=== PATIENT | male | born 1990 | race Caucasian/White ===

== ENCOUNTER 2023-12-31 08:12 | Outpatient (CLI) | payer OTHER, SELFPAY ==
--- NOTE | ~2023-12-31 | XR_ITS ---
EXAMINATION: XR chest 2V 12/31/2023 08:26 INDICATION: Pleurodynia PROCEDURE: 2 view chest COMPARISON: No prior studies for comparison. FINDINGS: The lungs are clear. The cardiomediastinal silhouette is within normal limits. There are no pleural effusions. There is no pneumothorax suspected. IMPRESSION: 1: NO ACUTE CARDIOPULMONARY DISEASE. Reviewed, dictated and finalized at location B.
== END 2023-12-31 08:13 ==
PROVIDERS: PCP Family Medicine; Visit Provider Student in an Organized Health Care Education/Training Program
DX: R07.81 Pleurodynia (principal)
CPT/HCPCS: 71046

== ENCOUNTER 2024-02-04 04:44 | Day surgery (SDC) | payer OTHER, SELFPAY ==
[2024-01-18 13:52] VITALS: BMI 41.8
--- NOTE | 2024-02-04 09:15 | WPDANESEPPF ---
Anes - Initial Pre Proc Eval Procedure: Operation Date: 02/04/24 12:30 Proposed Procedures p Colonoscopy - Gustavo Monsivais MD Date/Time: 02/04/24 09:15 Surgeon: Gustavo Monsivais MD Pre Op Diagnosis: Gastroenteritis/colitis unspecified Patient Data Age: 33 Gender: M Height: 1.83 m Weight: 140 kg Allergies Allergy/AdvReac Type Severity Reaction Status Date / Time No Known Drug Allergies Allergy Unknown Unknown Verified 02/04/24 11:08 Home Medications Medication Instructions Recorded Confirmed Type multivitamin with iron (Daily 1 tablet PO DAILY 03/03/23 02/04/24 History Multiple Vitamins with Iron tablet) omeprazole 20 mg capsule,delayed 20 mg PO DAILY 03/03/23 02/04/24 History release lisinopril 20 mg tablet 20 mg PO DAILY #30 tabs 11/22/23 02/04/24 Rx metformin 500 mg tablet,extended 500 mg PO DAILY #90 tabs 01/31/24 02/04/24 Rx release 24 hr Patient hx anesthesia problems: none Family hx anesthesia problems: none Results Review: All pre-operative results and documents have been reviewed as part of the pre-operative evaluation. [facility], [facility] Past Medical History Medical History Anxiety Surgical History Surgical History H/O wisdom tooth extraction 2007 Family History Family History Father Hypertension Mother Depression Thyroid disorder Sibling Asthma Depression Grandparent Heart disease Thyroid disorder Cerebrovascular accident Grandparent Heart disease Hypertension Diabetes mellitus Social History Social History Social History: Smoking status: Smoker, status unknown Tobacco type: smokeless tobacco Smokeless tobacco user: other Second hand tobacco smoke exposure: No Additional smoking assessment comments: Pt uses nicotine pouches Alcohol intake: current Drinks per week: 1 Alcohol use details: Rarely Substance use: former Substance use type: marijuana Other substance usage details: edible 1x month Do You Feel Safe in your Home?: Yes Lack of Transportation: No Lack of Food: Never True Current Housing: I Have Housing Concerned About Future Housing: No Difficulty Paying Gas/Electric Bills: No Difficulty Paying for Meds: No Currently Unemployed: No Education: Don't Know Difficulty w/ Childcare or Family Care: No Living arrangements: with family Additional living arrangements comments: lives w/ fiance Occupation/Education: occupation 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[employer] Gender identity (if verbalized by the patient): Male Sexual Orientation (if Verbalized by the Patient): Straight or Heterosexual Spiritual care concerns: No Anes - Eval Final PreProcedure Day of Procedure 02/04/24 09:15 Patient weight: morbidly obese Heart: regular rate and rhythm Lungs: clear to auscultation Airway: Mallampati scale class III Neurological: alert and oriented Last oral intake: >/= 8 hours ASA classification: III Emergent: no Anesthetic plan: proceed Anesthesia type and monitoring: general GIVS and standard monitoring Results Review: All pre-operative results and documents have been reviewed as part of the pre-operative evaluation. Informed Consent: The patient's anesthetic plan and its attendant risks and benefits were discussed with the patient/family/POA. Questions were solicited and answers provided to the satisfaction of the patient/family/POA.
[2024-02-04 11:08] LABS: Glucose Point of Care 135 mg/dl (65-105)
[2024-02-04 11:10] VITALS: BP 134/85; PULSE 107; RESP 16; TEMP 36.1; O2SAT 99
[2024-02-04] MEDS: LACTATED RINGERS 1,000 ML 150 ML IV CONT (11:16)
--- NOTE | 2024-02-04 12:51 | PM.HPGS ---
History of Present Illness History of Present Illness Consent: Risks, benefits, and alternatives have been discussed and questions answered. Patient agrees to proceed with procedure. Chief complaint: Gastroenteritis/colitis unspecified Narrative: Virgil Julio is a 33 year old male here for first colonoscopy, intermittent loose stools, few occasions used imodium. Review of Systems Review of Systems: All systems reviewed & are unremarkable except as noted in HPI and below PMFSH Past Medical History Medical History (Updated 02/04/24 @ 12:52 by Gustavo Monsivais MD) Anxiety Diarrhea Surgical History Surgical History H/O wisdom tooth extraction 2007 Family History Family History Father Hypertension Mother Depression Thyroid disorder Sibling Asthma Depression Grandparent Heart disease Thyroid disorder Cerebrovascular accident Grandparent Heart disease Hypertension Diabetes mellitus Social History Social History Social History: Smoking status: Smoker, status unknown Tobacco type: smokeless tobacco Smokeless tobacco user: other Second hand tobacco smoke exposure: No Additional smoking assessment comments: Pt uses nicotine pouches Alcohol intake: current Drinks per week: 1 Alcohol use details: Rarely Substance use: former Substance use type: marijuana Other substance usage details: edible 1x month Do You Feel Safe in your Home?: Yes Lack of Transportation: No Lack of Food: Never True Current Housing: I Have Housing Concerned About Future Housing: No Difficulty Paying Gas/Electric Bills: No Difficulty Paying for Meds: No Currently Unemployed: No Education: Don't Know Difficulty w/ Childcare or Family Care: No Living arrangements: with family Additional living arrangements comments: lives w/ fiance Occupation/Education: occupation 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[employer] Gender identity (if verbalized by the patient): Male Sexual Orientation (if Verbalized by the Patient): Straight or Heterosexual Spiritual care concerns: No Meds Home Medications and Allergies Home Medications Medication Instructions Recorded Confirmed Type multivitamin with iron (Daily 1 tablet PO DAILY 03/03/23 02/04/24 History Multiple Vitamins with Iron tablet) omeprazole 20 mg capsule,delayed 20 mg PO DAILY 03/03/23 02/04/24 History release lisinopril 20 mg tablet 20 mg PO DAILY #30 tabs 11/22/23 02/04/24 Rx metformin 500 mg tablet,extended 500 mg PO DAILY #90 tabs 01/31/24 02/04/24 Rx release 24 hr Allergies Allergy/AdvReac Type Severity Reaction Status Date / Time No Known Drug Allergies Allergy Unknown Unknown Verified 02/04/24 11:08 Vital Signs Vital Signs - 24 hr 02/04/24 11:10 Temperature 97 F L Pulse Rate 107 H Respiratory Rate 16 Blood Pressure 134/85 Pulse Oximetry 99 Oxygen Delivery Room Air Exam Const: General: comfortable and no acute distress HENMT: Face/Nose/Sinus: Normal nares present Eyes: General: appearance normal, both eyes and all related structures Neck: Neck: no JVD Resp: Auscultation: clear to auscultation bilaterally Cardio: Rate: regular rate Rhythm: regular rhythm GI: Inspection: non-distended GI Palp: Yes Soft to palpation Skin: General skin exam: normal color Neuro: General: gait normal Speech: normal speech Extrem: General: normal to inspection Psych: Mental Status: mental status grossly normal Assessment and Plan Assessment and plan (1) Diarrhea: Code(s): R19.7 - Diarrhea, unspecified Status: Acute Assessment and Plan: colonoscopy with random colon bx
[2024-02-04 13:05] VITALS: BP 129/68; PULSE 88; RESP 19; O2SAT 96
[2024-02-04 13:15] VITALS: BP 127/84; PULSE 96; RESP 25; O2SAT 98
[2024-02-04 13:25] VITALS: BP 124/79; PULSE 76; RESP 25; O2SAT 97
== END 2024-02-04 13:31 | disposition home or self-care (01) ==
PROVIDERS: PCP Family Medicine; Referring Provider Family Medicine; Visit Provider Internal Medicine Gastroenterology
PROC: 0DJD8ZZ Inspection of Lower Intestinal Tract, Via Natural or Artificial Opening Endoscopic (ICD-10-PCS; CPT 45378; principal; 2024-02-04 12:30)
DX: R19.7 Diarrhea, unspecified (principal); F17.290 Nicotine dependence, other tobacco product, uncomplicated; Z79.84 Long term (current) use of oral hypoglycemic drugs; E66.01 Morbid (severe) obesity due to excess calories; Z68.41 Body mass index [BMI] 40.0-44.9, adult
CPT/HCPCS: 45380; 82948; 88305; J2704; J7120

== ENCOUNTER 2024-04-01 15:55 | Emergency (ER) | payer OTHER, SELFPAY ==
--- NOTE | ~2024-04-01 | CT_ITS ---
EXAMINATION: CT soft tissue neck w con DATE: 04/01/2024 19:02 INDICATION: Enlargement shortness of breath, swallowing trouble x3 days, swollen tonsils TECHNIQUE: Computed tomography (CT) of the neck was performed with 75 mL Omnipaque-350 intravenous co ntrast. Automated exposure control and iterative reconstruction technique were employed. The dose-slick gth product was 717.58 mGy-cm. COMPARISON: None FINDINGS: The thyroid gland is unremarkable. The submandibular and parotid glands are symmetric. Bilateral anterior cervical chain. Mild left palatine tonsil enlargement. Marked right palatine tonsil enlargem ent with significant surrounding mucosal and soft tissue swelling/phlegmon, extending to the hypophar ynx, which appears to be limited to the right pharyngeal mucosal space. Mild edema in the right phary ngeal space. No definite focal rim enhancing fluid collection detected. The superior mediastinum is unremarkable. There is moderate narrowing of the hypopharyngeal airway. Normally enhancing neck ves sels. The orbits are unremarkable. Visualized sinuses and mastoid air cells are well aerated. Visu alized lung parenchyma is clear. No suspicious osseous finding. IMPRESSION: Marked right palatine tonsillar and mucosal space soft tissue swelling/phlegmon, causing moderate air way narrowing. No definite drainable abscess detected. Mild left palatine tonsillar swelling. Bilateral anterior cervical chain lymphadenopathy. Reviewed, dictated and finalized at location K. [facility] IMPRESSION: Marked right palatine tonsillar and mucosal space soft tissue swelling/phlegmon , causing moderate airway narrowing. No definite drainable abscess detected. Mild left palatine tonsillar swelling. Bilateral anterior cervical chain lymphadenopathy.
[2024-04-01 16:15] VITALS: BP 155/89; PULSE 98; RESP 14; TEMP 37.2; O2SAT 99
[2024-04-01 18:30] VITALS: BP 142/90; PULSE 112; RESP 16; O2SAT 98
[2024-04-01 18:38] LABS: Basophils Absolute Auto 0.1 K/mm3 (0.0-0.1); Basophils Percent Auto 0.4 % (0.2-1.2); Eosinophils Absolute Auto 0.1 K/mm3 (0-0.3); Eosinophils Percent Auto 0.4 % (0-4.4); Hematocrit 44.2 % (42.0-52.0); Hemoglobin 15.1 g/dL (14.0-18.0); Immature Granulocyte Absolute 0.12 K/mm3 (0.00-0.031); Immature Granulocyte Percent A 0.6 % (0-0.5); Lymphocytes Percent Auto 12.4 % (18.3-44.2); Mean Corpuscular HGB Conc 34.2 g/dl (32-36); Mean Corpuscular Hemoglobin 29.3 pg (26-34); Mean Corpuscular Volume 85.8 fl (80-100); Mean Platelet Volume 9.8 fl (7.4-10.4); Monocytes Absolute Auto 1.8 K/mm3 (0.1-0.6); Monocytes Percent Auto 9.1 % (2.6-8.5); Neutrophils Absolute Auto 14.9 K/mm3 (1.3-6.7); Neutrophils Percent Auto 77.1 % (45.5-73.1); Platelet Count Result 225 k/mm3 (150-375); Red Blood Count 5.15 M/mm3 (4.6-6.20); Red Cell Distribution Width 12.4 % (11.5-14.5); White Blood Count 19.3 K/mm3 (4.5-10.0)
[2024-04-01 18:48] LABS: Alanine Aminotransferase 30 U/L (6-50); Albumin Level 5.1 g/dL (3.5-5.1); Alkaline Phosphatase 74 U/L (38-126); Anion Gap 9 mmol/L (4-12); Aspartate Amino Transferase 28 U/L (17-59); Bilirubin,Total 2.3 mg/dL (0.2-1.3); Blood Urea Nitrogen 15 mg/dL (9-20); Calcium 9.9 mg/dL (8.4-10.2); Carbon Dioxide 28 mmol/L (22-30); Chloride 100 mmol/L (98-107); Estimated CRCL calculation 165 ml/min; Estimated Glomerular Filt Rate > 60; Glucose 121 mg/dL (65-110); Sodium 137 mmol/L (137-145)
[2024-04-01 19:03] LABS: Estimated CRCL calculation 148 ml/min; Estimated Glomerular Filt Rate > 60
--- NOTE | 2024-04-01 19:18 | ED_ITS ---
HPI - Recheck/Abnormal Lab/Rx General Chief Complaint: Recheck/Abnormal Lab/Rx <Laura Conti PA-C - Last Filed: 04/02/24 00:05> Stated Complaint: SWOLLEN TONSILS <Laura Conti PA-C - Last Filed: 04/02/24 00:05> Time Seen by Provider: 04/01/24 18:47 <Laura Conti PA-C - Last Filed: 04/02/24 00:05> History of Present Illness HPI narrative: 33-year-old male with history of hypertension, GERD and prediabetes on metformin presents to emergency department for sore throat for 3 days. Patient urgent care yesterday was prescribed amoxicillin. He has taken 3 doses and states his symptoms have significantly worsened which prompted him to come to [facility] ED today. He is reporting difficulty swallowing, drooling and feels like it is starting to affect his breathing. He is reporting changes in his voice. Denies nausea or vomiting. Endorses low-grade fevers. <Laura Conti PA-C - Last Filed: 04/02/24 00:05> Related Data Home Medications: Home Medications Medication Instructions Recorded Confirmed multivitamin with iron (Daily 1 tablet PO DAILY 03/03/23 02/04/24 Multiple Vitamins with Iron tablet) omeprazole 20 mg capsule,delayed 20 mg PO DAILY 03/03/23 02/04/24 release <Laura Conti PA-C - Last Filed: 04/02/24 00:05> Allergies/Adverse Reactions: Allergies Allergy/AdvReac Type Severity Reaction Status Date / Time No Known Drug Allergies Allergy Unknown Unknown Verified 02/04/24 11:08 <Laura Conti PA-C - Last Filed: 04/02/24 00:05> [facility]LY [facility] Past Medical History Medical History: Medical History Anxiety Diarrhea <Laura Conti PA-C - Last Filed: 04/02/24 00:05> Surgical History Surgical History: Surgical History H/O wisdom tooth extraction 2007 <Laura Conti PA-C - Last Filed: 04/02/24 00:05> Family History Family History: Family History Father Hypertension Mother Depression Thyroid disorder Sibling Asthma Depression Grandparent Heart disease Thyroid disorder Cerebrovascular accident Grandparent Heart disease Hypertension Diabetes mellitus <Laura Conti PA-C - Last Filed: 04/02/24 00:05> Social History Social History: Social History Social History: Smoking status: Smoker, status unknown Tobacco type: smokeless tobacco Smokeless tobacco user: other Second hand tobacco smoke exposure: No Additional smoking assessment comments: Pt uses nicotine pouches Alcohol intake: current Drinks per week: 1 Alcohol use details: Rarely Substance use: former Substance use type: marijuana Other substance usage details: edible 1x month Do You Feel Safe in your Home?: Yes Lack of Transportation: No Lack of Food: Never True Current Housing: I Have Housing Concerned About Future Housing: No Difficulty Paying Gas/Electric Bills: No Difficulty Paying for Meds: No Currently Unemployed: No Education: Don't Know Difficulty w/ Childcare or Family Care: No Living arrangements: with family Additional living arrangements comments: lives w/ fiance Occupation/Education: occupation 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 HEAD: Normocephalic, atraumatic. EYES: PERRLA and EOMI. ENT: Nares clear, no rhinorrhea or epistaxis. Mucous membranes moist. Posterior pharynx with right tonsillar hypertrophy and uvular deviation. No obvious exudates. Airway intact. No drooling on exam. No trismus. He does have hot potato voice with submandibular edema NECK: Supple. CHEST: Clear to auscultation. No respiratory distress. HEART: Regular rate and rhythm. No murmur heard. Normal peripheral pulses. EXTREMITIES: Normal range of motion. No edema. SKIN: Warm, dry, no rash. NEURO: No focal deficits. Alert and oriented x3 <Laura Conti PA-C - Last Filed: 04/02/24 00:05> Course ER REGISTRAR/PA Physician Supervision I agree with midlevel documentation; I performed significant medical decision-making components for this evaluation including initiation of antibiotics including Unasyn, recommendations were Decadron for airway swelling, evaluation of the CT with independent interpretation by myself and also in concurrence with radiology. I had independent [id number] time with the patient and performed my own independent evaluation and assessment. Patient has significant right-sided swelling in his posterior oropharynx although the CT scan shows this goes deeper into his hypopharynx and around his airway with moderate narrowing. Patient initially had a hot potato muffled voice and difficulty swallowing with some drooling and spitting up but was able to swallow. Mentating appropriately normal vital signs. We had shelley discussions about potential need for intubation if he were to decompensate here in the emergency department prior to definitive intervention with your nose and throat specialist. I re-evaluated the patient frequently in after his Decadron injection had significant improvement in his swelling and was now swallowing more comfortably, felt improvement in his voice and pain in his throat. I reviewed patient's laboratory studies and he has a significant leukocytosis as well as the soft tissue edema and swelling in his right-sided posterior oropharynx and hypopharynx consistent with a infectious process. Unasyn maintain at this time and transfer center was made aware of the critical nature of the transfer. Patient does not require emergent or prophylactic intubation at this time and we will monitor closely here in the ED. We had discussions with the receiving facility at [facility] and plans for an ED to ED transfer. Due to the weather, air ambulance transfer is not possible after we called them they are declining transfer via air evac. Ground transportation will have to do and patient was successfully transferred via [facility] ground ambulance unit. Patient maintained his own airway here in the emergency dep artment and had no decompensations during my re-evaluations and during transfer to EMS rig. Family members were present during the evaluations and agreeable to plan of care for transfer at this time. Patient had improvements while here in the ED and left successfully without further intervention or decompensation. <Thomas Hough MD - Last Filed: 04/01/24 23:12> Vital Signs Vital signs: Vital Signs Temperature 99.0 F 04/01/24 16:15 Pulse Rate 98 04/01/24 16:15 Respiratory Rate 14 04/01/24 16:15 Blood Pressure 155/89 H 04/01/24 16:15 Pulse Oximetry 99 04/01/24 16:15 Temperature 99.0 F 04/01/24 16:15 Pulse Rate 91 04/01/24 22:30 Respiratory Rate 18 04/01/24 22:30 Blood Pressure 102/66 04/01/24 22:30 Pulse Oximetry 97 04/01/24 22:30 <Laura Conti PA-C - Last Filed: 04/02/24 00:05> Vital Signs Temperature 99.0 F 04/01/24 16:15 Pulse Rate 98 04/01/24 16:15 Respiratory Rate 14 04/01/24 16:15 Blood Pressure 155/89 H 04/01/24 16:15 Pulse Oximetry 99 04/01/24 16:15 Temperature 99.0 F 04/01/24 16:15 Pulse Rate 91 04/01/24 22:30 Respiratory Rate 18 04/01/24 22:30 Blood Pressure 102/66 04/01/24 22:30 Pulse Oximetry 97 04/01/24 22:30 <Thomas Hough MD - Last Filed: 04/01/24 23:12> MDM - Recheck/Abnormal Lab/Rx MDM Narrative Medical decision making narrative: 33-year-old male with history of hypertension and prediabetes presents to the ED for sore throat for 3 days, worsening after taking amoxicillin. Triage vitals are stable, repeat vital signs reveal tachycardia 112. He is afebrile in the ED. Exam is significant for right-sided tonsillar hypertrophy with uvular deviation. Airway intact at this time. He is speaking in full sentences. No trismus. There is right submandibular edema that hot potato voice present. Concern for [place] verses deep space infection. CBC does reveal leukocytosis of 19.3. Patient meets sepsis criteria with tachycardia leukocytosis. 30 mL/kg of fluids ordered. He was immediately given IV Decadron and started on Unasyn.. Blood cultures pending. His chemistries reveal unknown cause of hyperbilirubinemia a 2.3, remainder LFTs are unremarkable. [place], COVID, flu, RSV and strep were negative. Lactic normal. CT soft tissue neck shows: Marked right palatine tonsillar and mucosal space soft tissue swelling/phlegmon, causing moderate airway narrowing. No definite drainable abscess detected. Mild left palatine tonsillar swelling. Bilateral anterior cervical chain lymphadenopathy. patient and family at bedside updated on workup. Unfortunately we do not have ENT. Plan to transfer to [facility] per patient's recommendations. He does have significant improvement after IV Decadron with improvement in his voice, breathing and swallowing. Airway has remained stable. Tachycardia is resolved. Discussed case with [facility] ENT physician, Dr. Kong who agrees to transfer, advises ED to ED transfer. Discussed with [facility] ED physician, Dr. Flores, who accepts transfer. Patient left our emergency department in stable condition with airway intact. <Laura Conti PA-C - Last Filed: 04/02/24 00:05> Lab Data Result diagrams: 04/01/24 18:32 04/01/24 18:55 <Laura Conti PA-C - Last Filed: 04/02/24 00:05> Labs: Lab Results 04/01/24 04/01/24 04/01/24 Range/Units 18:32 18:55 19:06 WBC 19.3 H (4.5-10.0) K/mm3 RBC 5.15 (4.6-6.20) M/mm3 Hgb 15.1 (14.0-18.0) g/dL Hct 44.2 (42.0-52.0) % MCV 85.8 (80-100) fl MCH 29.3 (26-34) pg MCHC 34.2 (32-36) g/dl RDW 12.4 (11.5-14.5) % Plt Count 225 (150-375) k/mm3 MPV 9.8 (7.4-10.4) fl Immature Gran % (Auto) 0.6 H (0-0.5) % Neut % (Auto) 77.1 H (45.5-73.1) % Lymph % (Auto) 12.4 L (18.3-44.2) % [place] % (Auto) 9.1 H (2.6-8.5) % Eos % (Auto) 0.4 (0-4.4) % Baso % (Auto) 0.4 (0.2-1.2) % Lymph # (Auto) 2.40 (0.9-3.2) K/mm3 [place] # (Auto) 1.8 H (0.1-0.6) K/mm3 Eos # (Auto) 0.1 (0-0.3) K/mm3 Baso # (Auto) 0.1 (0.0-0.1) K/mm3 Abs Immat Gran (auto) 0.12 H (0.00-0.031) K/mm3 Absolute Neuts (auto) 14.9 H (1.3-6.7) K/mm3 Absolute Nucleated RBC 0.000 (0.0-0.012) K/mm3 Nucleated RBC % 0.0 (0.0-0.2) % ESR 20 (0-20) mm/hr Sodium 137 (137-145) mmol/L Potassium 4.0 (3.4-5.0) mmol/L Chloride 100 (98-107) mmol/L Carbon Dioxide 28 (22-30) mmol/L Anion Gap 9 (4-12) mmol/L BUN 15 (9-20) mg/dL Creatinine 0.80 0.90 (0.7-1.3) mg/dL Estim Creat Clear Calc 165 148 ml/min Estimated GFR > 60 > 60 (59 - ) Glucose 121 H (65-110) mg/dL POC Capillary Glucose (65-105) mg/dl Lactic Acid (0.7-2.0) mmol/L Calcium 9.9 (8.4-10.2) mg/dL Total Bilirubin 2.3 H (0.2-1.3) mg/dL AST 28 (17-59) U/L ALT 30 (6-50) U/L Alkaline Phosphatase 74 (38-126) U/L C-Reactive Protein (<1.0) mg/dL Total Protein 9.0 H (6.3-8.2) g/dL Albumin 5.1 (3.5-5.1) g/dL Monoscreen Negative (Negative) Influenza A (RT-PCR) Negative (Negative) Influenza B (RT-PCR) Negative (Negative) RSV (RT-PCR) Negative (Negative) SARS-CoV-2 RNA (RT-PCR) Negative (Negative) Group A Strep (PCR) Not detected (Negative) 04/01/24 04/01/24 Range/Units 19:45 19:47 WBC (4.5-10.0) K/mm3 RBC (4.6-6.20) M/mm3 Hgb (14.0-18.0) g/dL Hct (42.0-52.0) % MCV (80-100) fl MCH (26-34) pg MCHC (32-36) g/dl RDW (11.5-14.5) % Plt Count (150-375) k/mm3 MPV (7.4-10.4) fl Immature Gran % (Auto) (0-0.5) % Neut % (Auto) (45.5-73.1) % Lymph % (Auto) (18.3-44.2) % [place] % (Auto) (2.6-8.5) % Eos % (Auto) (0-4.4) % Baso % (Auto) (0.2-1.2) % Lymph # (Auto) (0.9-3.2) K/mm3 [place] # (Auto) (0.1-0.6) K/mm3 Eos # (Auto) (0-0.3) K/mm3 Baso # (Auto) (0.0-0.1) K/mm3 Abs Immat Gran (auto) (0.00-0.031) K/mm3 Absolute Neuts (auto) (1.3-6.7) K/mm3 Absolute Nucleated RBC (0.0-0.012) K/mm3 Nucleated RBC % (0.0-0.2) % ESR (0-20) mm/hr Sodium (137-145) mmol/L Potassium (3.4-5.0) mmol/L Chloride (98-107) mmol/L Carbon Dioxide (22-30) mmol/L Anion Gap (4-12) mmol/L BUN (9-20) mg/dL Creatinine (0.7-1.3) mg/dL Estim Creat Clear Calc ml/min Estimated GFR (59 - ) Glucose (65-110) mg/dL POC Capillary Glucose 137 H (65-105) mg/dl Lactic Acid 1.4 (0.7-2.0) mmol/L Calcium (8.4-10.2) mg/dL Total Bilirubin (0.2-1.3) mg/dL AST (17-59) U/L ALT (6-50) U/L Alkaline Phosphatase (38-126) U/L C-Reactive Protein 15.7 H (<1.0) mg/dL Total Protein (6.3-8.2) g/dL Albumin (3.5-5.1) g/dL Monoscreen (Negative) Influenza A (RT-PCR) (Negative) Influenza B (RT-PCR) (Negative) RSV (RT-PCR) (Negative) SARS-CoV-2 RNA (RT-PCR) (Negative) Group A Strep (PCR) (Negative) <Laura Conti PA-C - Last Filed: 04/02/24 00:05> Lab Results 04/01/24 04/01/24 04/01/24 Range/Units 18:32 18:55 19:06 WBC 19.3 H (4.5-10.0) K/mm3 RBC 5.15 (4.6-6.20) M/mm3 Hgb 15.1 (14.0-18.0) g/dL Hct 44.2 (42.0-52.0) % MCV 85.8 (80-100) fl MCH 29.3 (26-34) pg MCHC 34.2 (32-36) g/dl RDW 12.4 (11.5-14.5) % Plt Count 225 (150-375) k/mm3 MPV 9.8 (7.4-10.4) fl Immature Gran % (Auto) 0.6 H (0-0.5) % Neut % (Auto) 77.1 H (45.5-73.1) % Lymph % (Auto) 12.4 L (18.3-44.2) % [place] % (Auto) 9.1 H (2.6-8.5) % Eos % (Auto) 0.4 (0-4.4) % Baso % (Auto) 0.4 (0.2-1.2) % Lymph # (Auto) 2.40 (0.9-3.2) K/mm3 [place] # (Auto) 1.8 H (0.1-0.6) K/mm3 Eos # (Auto) 0.1 (0-0.3) K/mm3 Baso # (Auto) 0.1 (0.0-0.1) K/mm3 Abs Immat Gran (auto) 0.12 H (0.00-0.031) K/mm3 Absolute Neuts (auto) 14.9 H (1.3-6.7) K/mm3 Absolute Nucleated RBC 0.000 (0.0-0.012) K/mm3 Nucleated RBC % 0.0 (0.0-0.2) % ESR 20 (0-20) mm/hr Sodium 137 (137-145) mmol/L Potassium 4.0 (3.4-5.0) mmol/L Chloride 100 (98-107) mmol/L Carbon Dioxide 28 (22-30) mmol/L Anion Gap 9 (4-12) mmol/L BUN 15 (9-20) mg/dL Creatinine 0.80 0.90 (0.7-1.3) mg/dL Estim Creat Clear Calc 165 148 ml/min Estimated GFR > 60 > 60 (59 - ) Glucose 121 H (65-110) mg/dL POC Capillary Glucose (65-105) mg/dl Lactic Acid (0.7-2.0) mmol/L Calcium 9.9 (8.4-10.2) mg/dL Total Bilirubin 2.3 H (0.2-1.3) mg/dL AST 28 (17-59) U/L ALT 30 (6-50) U/L Alkaline Phosphatase 74 (38-126) U/L C-Reactive Protein (<1.0) mg/dL Total Protein 9.0 H (6.3-8.2) g/dL Albumin 5.1 (3.5-5.1) g/dL Monoscreen Negative (Negative) Influenza A (RT-PCR) Negative (Negative) Influenza B (RT-PCR) Negative (Negative) RSV (RT-PCR) Negative (Negative) SARS-CoV-2 RNA (RT-PCR) Negative (Negative) Group A Strep (PCR) Not detected (Negative) 04/01/24 04/01/24 Range/Units 19:45 19:47 WBC (4.5-10.0) K/mm3 RBC (4.6-6.20) M/mm3 Hgb (14.0-18.0) g/dL Hct (42.0-52.0) % MCV (80-100) fl MCH (26-34) pg MCHC (32-36) g/dl RDW (11.5-14.5) % Plt Count (150-375) k/mm3 MPV (7.4-10.4) fl Immature Gran % (Auto) (0-0.5) % Neut % (Auto) (45.5-73.1) % Lymph % (Auto) (18.3-44.2) % [place] % (Auto) (2.6-8.5) % Eos % (Auto) (0-4.4) % Baso % (Auto) (0.2-1.2) % Lymph # (Auto) (0.9-3.2) K/mm3 [place] # (Auto) (0.1-0.6) K/mm3 Eos # (Auto) (0-0.3) K/mm3 Baso # (Auto) (0.0-0.1) K/mm3 Abs Immat Gran (auto) (0.00-0.031) K/mm3 Absolute Neuts (auto) (1.3-6.7) K/mm3 Absolute Nucleated RBC (0.0-0.012) K/mm3 Nucleated RBC % (0.0-0.2) % ESR (0-20) mm/hr Sodium (137-145) mmol/L Potassium (3.4-5.0) mmol/L Chloride (98-107) mmol/L Carbon Dioxide (22-30) mmol/L Anion Gap (4-12) mmol/L BUN (9-20) mg/dL Creatinine (0.7-1.3) mg/dL Estim Creat Clear Calc ml/min Estimated GFR (59 - ) Glucose (65-110) mg/dL POC Capillary Glucose 137 H (65-105) mg/dl Lactic Acid 1.4 (0.7-2.0) mmol/L Calcium (8.4-10.2) mg/dL Total Bilirubin (0.2-1.3) mg/dL AST (17-59) U/L ALT (6-50) U/L Alkaline Phosphatase (38-126) U/L C-Reactive Protein 15.7 H (<1.0) mg/dL Total Protein (6.3-8.2) g/dL Albumin (3.5-5.1) g/dL Monoscreen (Negative) Influenza A (RT-PCR) (Negative) Influenza B (RT-PCR) (Negative) RSV (RT-PCR) (Negative) SARS-CoV-2 RNA (RT-PCR) (Negative) Group A Strep (PCR) (Negative) <Thomas Hough MD - Last Filed: 04/01/24 23:12> Critical Care Time Critical Care Time Critical Care Time: Yes <Thomas Hough MD - Last Filed: 04/01/24 23:12> Total Critical Care Time: 75 <Thomas Hough MD - Last Filed: 04/01/24 23:12> Discharge Plan Discharge Clinical Impression: Acute tonsillitis, Airway compromise <Laura Conti PA-C - Last Filed: 04/02/24 00:05> Patient Disposition: [facility] <Laura Conti PA-C - Last Filed: 04/02/24 00:05> Condition: Serious <Laura Conti PA-C - Last Filed: 04/02/24 00:05> Prescriptions: No Action omeprazole 20 mg capsule,delayed release(DR/EC) 20 mg PO DAILY multivitamin with iron [Daily Multiple Vitamins/Iron] Tablet 1 tablet PO DAILY metformin 500 mg tablet extended release 24 hr 500 mg PO DAILY Qty: 90 1RF lisinopril 20 mg tablet See Rx Instructions .ROUTE .COMPLEX Qty: 90 1RF Dose Instruction: TAKE 1 TABLET BY MOUTH DAILY Rx Instructions: TAKE 1 TABLET BY MOUTH DAILY <Laura Conti PA-C - Last Filed: 04/02/24 00:05> Follow-up/Referrals: Mason Whitehead MD [Primary Care Provider] - <Laura Conti PA-C - Last Filed: 04/02/24 00:05> Time of Disposition: 23:11 <Laura Conti PA-C - Last Filed: 04/02/24 00:05> 23:11 <Thomas Hough MD - Last Filed: 04/01/24 23:12>
[2024-04-01] MEDS: dexAMETHasone SOD PHOS INJ 10 MG/ML 1 ML VIAL IV PUSH (19:33)
[2024-04-01] MEDS: LACTATED RINGERS 1,000 ML 999 ML IV CONT ×3 (19:33→22:15)
[2024-04-01] MEDS: AMPICILLIN SULB 3 GM/NS 100 ML 3 GM/100 ML VIAL IVPB (19:35)
[2024-04-01 19:36] VITALS: BP 122/79; PULSE 98; RESP 16; O2SAT 100
[2024-04-01 19:36] LABS: Strep Group A RT-PCR NOT DETECTED (Negative)
[2024-04-01 19:42] LABS: Monoscreen Negative (Negative); Negative Monotest Control Negative (Negative); Positive Monotest Control Positive (Positive)
[2024-04-01 19:46] LABS: Influenza A QL RT-PCR Negative (Negative); Influenza B QL RT-PCR Negative (Negative); RSV RNA, RT-PCR Negative (Negative); SARS-CoV-2 RNA PCR Negative (Negative)
[2024-04-01 19:47] LABS: Glucose Point of Care 137 mg/dl (65-105)
--- NOTE | 2024-04-01 19:49 | PC.NURSE ---
per kristi yeager pt to recieve 3mg of zofran due to increased nausea. this rn used closed loop communication to confirm dose/ route/ patient/ time/ medication. kristi yeager verbalized confirmation.
--- NOTE | 2024-04-01 19:51 | PC.NURSE ---
after pt recieved dexaethasone iv push per kristi yeager. pt stated he felt light headed/ dizzy/ nauseated/ experiencing cold sweats. pt vitals at this time were 87 hr, 13 RR, 94% RA, 85/55 BP on the left arm. this rn elevated the head of the bed. stopped infusion of ampillicin that was currently infusing. increased rate of lactated ringers. this rn checked a blood glucose on this patient which was 135. kristi yeager at bedside. pt stated he was starting feel better after this rn applied x2 washcloths to forehead and neck region per patient request. pt vitals at this time were 96 HR, 23 RR, 96% RA, and bp of 102/ 69. pt visitor at bedside. pt stated dizziness was better at this time and stated he did not feel cool and clammy at this time. pt also stating that his throat feels less restrictive .
[2024-04-01 20:13] LABS: Lactic Acid Reflex 1.4 mmol/L (0.7-2.0)
[2024-04-01 20:28] LABS: Erythrocyte Sedimentation Rate 20 mm/hr (0-20)
[2024-04-01] MEDS: ONDANSETRON INJ 4 MG/2 ML VIAL (20:28)
[2024-04-01 20:29] VITALS: BP 122/68; PULSE 104; RESP 18; O2SAT 98
[2024-04-01 20:29] LABS: CRP 15.7 mg/dL (<1.0)
[2024-04-01 22:30] VITALS: BP 102/66; PULSE 91; RESP 18; O2SAT 97
== END 2024-04-01 22:54 | disposition short-term general hospital (02) ==
PROVIDERS: Emergency Medicine; Emergency Provider Physician Assistant; PCP Family Medicine
DX: J03.90 Acute tonsillitis, unspecified (principal); J98.8 Other specified respiratory disorders; Z20.822 Contact with and (suspected) exposure to COVID-19; I10 Essential (primary) hypertension; R73.03 Prediabetes; K21.9 Gastro-esophageal reflux disease without esophagitis; F17.220 Nicotine dependence, chewing tobacco, uncomplicated; Z79.84 Long term (current) use of oral hypoglycemic drugs; Z79.899 Other long term (current) drug therapy
CPT/HCPCS: 36415; 70491; 80053; 82948; 83605; 85025; 85652; 86140; 86308; 87040; 87637; 87651; 96365; 96366; 96375; 99285; J0295; J1100; J2405; J7120; Q9967

== ENCOUNTER 2024-09-22 15:51 | Outpatient (CLI) | payer OTHER, SELFPAY ==
--- NOTE | ~2024-09-22 | XR_ITS ---
XR hip LT 2V w AP pelvis 09/22/2024 16:16 Indication: Left hip pain Procedure: 3 views left hip including AP pelvis Comparison: No prior studies for comparison. Findings: Pelvic rings are intact. There is mild bilateral osteoarthritis of the hips. No fracture, s ubluxation or dislocation. Impression: 1: Mild bilateral osteoarthritis of the hips. Reviewed, dictated and finalized at location A. Impression: 1: Mild bilateral osteoarthritis of the hips.
== END 2024-09-22 15:52 | disposition home or self-care (01) ==
PROVIDERS: PCP Family Medicine
DX: M16.0 Bilateral primary osteoarthritis of hip (principal)
CPT/HCPCS: 73502